=== PATIENT | female | born 1985 | race Caucasian/White ===

== ENCOUNTER 2017-11-13 15:44 | Emergency (ER) | payer MEDICAID ==
[~2017-11-13] VITALS: Ht 167.6 cm; Wt 138.0 kg
[~2017-11-13 15:44] MED LIST: ALBU6.7H INH; BECL8.7A7 INH; FLUT16SP26 BOTHNARES; MECL-111 PO; ONDA4TAB12 PO; SERT50TA PO
[2017-11-13 16:12] VITALS: BP 161/65
[2017-11-13] MEDS ORDERED: HYDR25SU32 RC (17:36)
[2017-11-13] MEDS ORDERED: HYDR30CR79 TOP (17:36)
== END 2017-11-13 17:50 | disposition home or self-care (01) ==
LOC: ER 15:45
DX: K64.4 Residual hemorrhoidal skin tags (principal); I10 Essential (primary) hypertension; K21.9 Gastro-esophageal reflux disease without esophagitis; E11.9 Type 2 diabetes mellitus without complications; F41.9 Anxiety disorder, unspecified; F12.10 Cannabis abuse, uncomplicated; J45.909 Unspecified asthma, uncomplicated; Z88.5 Allergy status to narcotic agent; Z88.8 Allergy status to other drugs, medicaments and biological substances
CPT/HCPCS: 99283

== ENCOUNTER 2018-04-06 12:39 | Emergency (ER) | payer MEDICAID ==
[~2018-04-06] VITALS: Ht 4228.2 cm; Wt 158.0 kg
[~2018-04-06 12:39] MED LIST changes: +HYDR25SU32 RC; +HYDR30CR79 TOP
[2018-04-06 13:19] LABS: BASOPHILS % (AUTO) 0.3 % (0-1); EOSINOPHILS # (AUTO) 0.1 X10'3 (0-0.9); HEMATOCRIT 36.6 % (35.0-45.0); HEMOGLOBIN 12.3 g/dl (12.0-16.0); LYMPHOCYTES # (AUTO) 2.6 X10'3 (1.1-4.8); LYMPHOCYTES % (AUTO) 19.5 % (21-51); MEAN CORPUSCULAR HEMOGLOBIN 27.2 PG (27.0-31.0); MEAN CORPUSCULAR HGB CONC 33.5 % (33.0-36.5); MEAN CORPUSCULAR VOLUME 81.2 FL (78-98); MEAN PLATELET VOLUME 8.4 FL (7.4-10.4); MONOCYTES # (AUTO) 0.7 X10'3 (0-0.9); MONOCYTES % (AUTO) 5.3 % (2-12); NEUTROPHILS # (AUTO) 9.8 X10'3 (1.8-7.7); NEUTROPHILS % (AUTO) 73.9 % (42-75); PLATELET COUNT 399 X10'3 (140-440); RED BLOOD COUNT 4.51 X10'6 (4.20-5.60); RED CELL DISTRIBUTION WIDTH 15.3 % (11.5-14.5); WHITE BLOOD COUNT 13.3 X10'3 (4.5-11.0)
[2018-04-06 13:24] LABS: CLARITY,URINE CLOUDY (Clear); COLOR,URINE YELLOW (Yellow); GLUCOSE, URINE NEGATIVE (Neg); KETONES,URINE NEGATIVE (Neg); LEUKOCYTE ESTERASE ,URINE NEGATIVE (Neg); NITRITES, URINE NEGATIVE (Neg); OCCULT BLOOD,URINE MODERATE (Neg); PROTEIN,URINE NEGATIVE (Neg); UA COLLECTION TYPE CLN CATCH MIDSTREAM; URINE HCG NEGATIVE (NEG); UROBILINOGEN,URINE 0.2 E.U/dL (0.2-1.0)
[2018-04-06 13:29] LABS: MUCUS STRANDS MODERATE /LPF (Neg); SQUAMOUS EPITHELIAL CELL,UR MODERATE /LPF (FEW)
[2018-04-06 13:31] LABS: BACTERIA,URINE FEW /HPF (Neg); WBC,URINE 0-4 /HPF (0-4)
[2018-04-06 13:36] LABS: URINE AMPHETAMINE SCREEN NEGATIVE (Neg); URINE BARBITUATE SCREEN NEGATIVE (Neg); URINE BENZODIAZEPINES SCREEN NEGATIVE (Neg); URINE CANNABINOID SCREEN POSITIVE (Neg); URINE COCAINE SCREEN NEGATIVE (Neg); URINE METHADONE SCREEN NEGATIVE (Neg); URINE OPIATE SCREEN NEGATIVE (Neg); URINE PHENCYCLIDINE SCREEN NEGATIVE (Neg)
[2018-04-06 13:38] LABS: ALANINE AMINOTRANSFERASE 34 U/L (12-78); ALBUMIN 4.1 G/DL (3.4-5.0); ALKALINE PHOSPHATASE 105 IU/L (46-116); ANION GAP 12 (8-16); ASPARTATE AMINO TRANSFERASE 29 U/L (10-37); BILIRUBIN,TOTAL 0.6 MG/DL (0.1-1.0); BLOOD UREA NITROGEN 16 MG/DL (7-18); BUN/CREATININE RATIO 16.3 (6.6-38.0); CALCIUM 9.1 MG/DL (8.5-10.1); CHLORIDE 100 MMOL/L (99-107); CREATININE 0.98 MG/DL (0.40-0.90); GLUCOSE 121 MG/DL (70-104); POTASSIUM 3.5 MMOL/L (3.5-5.1); SODIUM 139 MMOL/L (135-145); TOTAL PROTEIN 8.1 G/DL (6.4-8.2); eGFR 66 ML/MIN
[2018-04-06 13:44] LABS: ETHANOL < 0.010 GM/DL (0.0-0.010)
[2018-04-06] MEDS ORDERED: LAMO25TA94 PO (14:42)
[2018-04-06] MEDS ORDERED: LORA0.5T PO (14:42)
[2018-04-06] MEDS ORDERED: HYDR12.5 PO (14:42)
[2018-04-06] MEDS ORDERED: albuterol 2.5 MG/3 ML nebule NEB PRN (18:30)
[2018-04-06] MEDS: LORazepam 0.5 MG tablet PO PRN (19:12)
[2018-04-06] MEDS: acetaminophen 325mg tablet PO PRN (19:13)
[2018-04-06] MEDS: budesonide 0.5mg/2ml UD nebule IH SCH (20:03)
[2018-04-06] MEDS: traZODone 50mg tablet PO SCH (20:17)
[2018-04-06] MEDS: lamoTRIgine 25mg tablet PO SCH (20:17)
[2018-04-07] MEDS: pantoprazole 40mg Tablet.DR PO SCH (07:30)
[2018-04-07] MEDS: budesonide 0.5mg/2ml UD nebule IH SCH ×2 (08:33→20:18)
[2018-04-07] MEDS: sertraline 50mg tablet PO SCH (08:58)
[2018-04-07] MEDS: HYDROchlorothiazide 12.5mg capsule PO SCH (08:58)
[2018-04-07] MEDS: LORazepam 0.5 MG tablet PO PRN (13:36)
[2018-04-07] MEDS: acetaminophen 325mg tablet PO PRN (17:30)
[2018-04-07] MEDS: lamoTRIgine 25mg tablet PO SCH (20:54)
[2018-04-07] MEDS: traZODone 50mg tablet PO SCH (20:54)
[2018-04-08 06:33] VITALS: BP 149/84
[2018-04-08] MEDS: budesonide 0.5mg/2ml UD nebule IH SCH (07:39)
[2018-04-08] MEDS: sertraline 50mg tablet PO SCH (08:22)
[2018-04-08] MEDS: pantoprazole 40mg Tablet.DR PO SCH (08:23)
[2018-04-08] MEDS: HYDROchlorothiazide 12.5mg capsule PO SCH (09:01)
[2018-04-10] MEDS ORDERED: lamoTRIgine 100mg tablet PO SCH (21:00)
== END 2018-04-08 15:40 ==
LOC: ER 12:40
DX: S50.12XA Contusion of left forearm, initial encounter (principal); S00.81XA Abrasion of other part of head, initial encounter; I10 Essential (primary) hypertension; J45.909 Unspecified asthma, uncomplicated; K21.9 Gastro-esophageal reflux disease without esophagitis; E11.9 Type 2 diabetes mellitus without complications; F12.90 Cannabis use, unspecified, uncomplicated; Z98.890 Other specified postprocedural states; Z88.8 Allergy status to other drugs, medicaments and biological substances; Z79.899 Other long term (current) drug therapy; W25.XXXA Contact with sharp glass, initial encounter; Y93.89 Activity, other specified; Y92.89 Other specified places as the place of occurrence of the external cause; Y99.8 Other external cause status
CPT/HCPCS: 36415; 73110; 80053; 80305; 80320; 81001; 81025; 84443; 85025; 94640; 94760; 99285; J7626

== ENCOUNTER 2021-03-05 15:12 | Emergency (ER) | payer MEDICAID ==
[~2021-03-05] VITALS: Ht 167.6 cm; Wt 154.0 kg
[~2021-03-05 15:12] MED LIST changes: -ALBU6.7H INH; +ALBU6.7H9 INH; +HYDR12.5 PO; -HYDR25SU32 RC; -HYDR30CR79 TOP; +LAMO25TA94 PO; +LORA0.5T PO; -MECL-111 PO; +MECL-159 PO; -ONDA4TAB12 PO
[2021-03-05 16:23] LABS: BASOPHILS # (AUTO) 0.1 X10'3 (0-0.2); BASOPHILS % (AUTO) 0.6 % (0-1); EOSINOPHILS # (AUTO) 0.3 X10'3 (0-0.9); EOSINOPHILS % (AUTO) 2.4 % (0-6); HEMATOCRIT 37.7 % (35.0-45.0); HEMOGLOBIN 12.1 g/dl (12.0-16.0); LYMPHOCYTES # (AUTO) 2.8 X10'3 (1.1-4.8); MEAN CORPUSCULAR HEMOGLOBIN 25.9 PG (27.0-31.0); MEAN CORPUSCULAR HGB CONC 32.2 g/dL (33.0-36.5); MEAN CORPUSCULAR VOLUME 80.3 FL (78-98); MEAN PLATELET VOLUME 8.8 FL (7.4-10.4); MONOCYTES # (AUTO) 0.6 X10'3 (0-0.9); MONOCYTES % (AUTO) 5.2 % (2-12); NEUTROPHILS # (AUTO) 8.2 X10'3 (1.8-7.7); NEUTROPHILS % (AUTO) 68.8 % (42-75); PLATELET COUNT 378 X10'3 (140-440); RED BLOOD COUNT 4.69 X10'6 (4.20-5.60)
[2021-03-05 16:38] LABS: ALANINE AMINOTRANSFERASE 26 U/L (12-78); ALBUMIN 3.9 G/DL (3.4-5.0); ALBUMIN/GLOBULIN RATIO 1.1 (1.1-1.5); ALKALINE PHOSPHATASE 92 IU/L (46-116); ANION GAP 8 (8-16); ASPARTATE AMINO TRANSFERASE 15 U/L (10-37); BILIRUBIN,TOTAL 0.5 MG/DL (0.1-1.0); BLOOD UREA NITROGEN 17 MG/DL (7-18); BUN/CREATININE RATIO 21.3 (6.6-38.0); CALCIUM 8.4 MG/DL (8.5-10.1); CHLORIDE 104 MMOL/L (99-107); GLUCOSE 92 MG/DL (70-104); POTASSIUM 3.4 MMOL/L (3.5-5.1); SODIUM 141 MMOL/L (135-145); TOTAL CARBON DIOXIDE 28.7 MMOL/L (24-32); TOTAL PROTEIN 7.6 G/DL (6.4-8.2); eGFR 82 ML/MIN
[2021-03-05 16:45] LABS: ETHANOL < 0.010 GM/DL (0.0-0.010)
[2021-03-05 16:47] LABS: ACETAMINOPHEN < 2.0 UG/ML (10-30)
[2021-03-05 16:51] LABS: CLARITY,URINE CLEAR (Clear); COLOR,URINE YELLOW (Yellow); GLUCOSE, URINE NEGATIVE (Neg); KETONES,URINE NEGATIVE (Neg); LEUKOCYTE ESTERASE ,URINE NEGATIVE (Neg); NITRITES, URINE NEGATIVE (Neg); OCCULT BLOOD,URINE TRACE-INTACT (Neg); PH,URINE 5.5 (4.8-8.0); PROTEIN,URINE NEGATIVE (Neg); UROBILINOGEN,URINE 0.2 E.U/dL (0.2-1.0)
[2021-03-05 16:53] LABS: URINE HCG NEGATIVE (NEG)
[2021-03-05] MEDS ORDERED: ESCI20TA PO (16:57)
[2021-03-05] MEDS ORDERED: BUSP10TA11 PO (16:57)
[2021-03-05] MEDS ORDERED: TRAN650T2 PO (16:57)
[2021-03-05] MEDS ORDERED: METR-159 PO (16:57)
[2021-03-05] MEDS ORDERED: METF500T PO (16:57)
[2021-03-05] MEDS ORDERED: SIMV-42 PO (16:57)
[2021-03-05] MEDS ORDERED: FLUT16SP11 BOTHNARES (16:57)
[2021-03-05] MEDS ORDERED: LAMO100T PO (16:57)
[2021-03-05] MEDS ORDERED: LAMO200T2 PO (16:57)
[2021-03-05 16:58] LABS: UA COLLECTION TYPE CLN CATCH MIDSTREAM
[2021-03-05 17:00] LABS: SQUAMOUS EPITHELIAL CELL,UR MANY /LPF (FEW); TRANSITIONAL EPI CELLS,URINE FEW /HPF
[2021-03-05] MEDS ORDERED: metFORMIN 500mg tablet PO SCH (17:00)
[2021-03-05 17:02] LABS: WBC,URINE 0-4 /HPF (0-4)
[2021-03-05 17:04] LABS: MUCUS STRANDS MANY /LPF (Neg)
[2021-03-05 17:05] LABS: URINE AMPHETAMINE SCREEN NEGATIVE (Neg); URINE BARBITUATE SCREEN NEGATIVE (Neg); URINE BENZODIAZEPINES SCREEN NEGATIVE (Neg); URINE CANNABINOID SCREEN POSITIVE (Neg); URINE COCAINE SCREEN NEGATIVE (Neg); URINE METHADONE SCREEN NEGATIVE (Neg); URINE OPIATE SCREEN NEGATIVE (Neg); URINE PHENCYCLIDINE SCREEN NEGATIVE (Neg)
[2021-03-05 17:08] LABS: BACTERIA,URINE FEW /HPF (Neg)
[2021-03-05] MEDS ORDERED: tranexamic acid 650mg tablet PO PRN (17:25)
[2021-03-05] MEDS ORDERED: albuterol 2.5 MG/3 ML nebule NEB PRN (17:25)
[2021-03-05] MEDS ORDERED: potassium Cl 20 mEq SR tablet PO ONE (17:30)
--- NOTE | 2021-03-05 17:37 | NUR ---
HOWARD SISTER [phone]
--- NOTE | 2021-03-05 18:32 | NUR ---
Assumed care of patient- report recieved from Andrzej WRIGHT
--- NOTE | 2021-03-05 19:30 | NUR ---
Patient provided with dinner tray- able to feed herself independently.
[2021-03-05 19:45] VITALS: BP 155/88
--- NOTE | 2021-03-05 20:30 | NUR ---
Patient provided with water to take night time medications- able to swallow without difficulty.
[2021-03-05] MEDS: busPIRone 5mg tablet PO SCH (20:42)
[2021-03-05] MEDS: metroNIDAZOLE 500mg tablet PO SCH (20:42)
[2021-03-05] MEDS ORDERED: atorvastatin 10mg tablet PO SCH (21:00)
[2021-03-05] MEDS ORDERED: lamoTRIgine 100mg tablet PO SCH (21:00)
[2021-03-05] MEDS: budesonide 0.5mg/2ml UD nebule IH SCH (21:10)
--- NOTE | 2021-03-05 21:30 | NUR ---
Respiratory therapy at bedside provided patient with breathing treatment. Patient states she usually wears a CPAP for sleep apnea.
--- NOTE | 2021-03-05 22:30 | NUR ---
Patient remains tearful but cooperative. Provided with tissues.
--- NOTE | 2021-03-05 23:30 | NUR ---
Patient appears to be asleep, even and unlabored respirations, turned on her side.
--- NOTE | 2021-03-06 02:54 | NUR ---
[facility] called requesting some information on patient. COVID swab is needed.
[2021-03-06] MEDS ORDERED: acetaminophen 325mg tablet PO ONE (03:25)
--- NOTE | 2021-03-06 03:30 | NUR ---
Patient provided with medicaitons for headache/back pain states "it's probably because I've been crying so much".
[2021-03-06] MEDS: budesonide 0.5mg/2ml UD nebule IH SCH (07:44)
[2021-03-06] MEDS ORDERED: HYDROchlorothiazide 12.5mg capsule PO SCH (08:00)
[2021-03-06] MEDS ORDERED: ESCITALOPRAM OXALATE 5 MG TABLET PO SCH (08:00)
[2021-03-06] MEDS ORDERED: lamoTRIgine 100mg tablet PO SCH (08:00)
[2021-03-06] MEDS ORDERED: fluticasone nasal spray 16GM bottle NS SCH (08:00)
[2021-03-06] MEDS: busPIRone 5mg tablet PO SCH (08:33)
[2021-03-06] MEDS: metroNIDAZOLE 500mg tablet PO SCH (08:33)
[2021-03-06] MEDS ORDERED: LORazepam 1 MG tablet PO ONE (08:50)
[2021-03-06] MEDS ORDERED: LISI20TA28 PO (09:29)
[2021-03-06] MEDS ORDERED: budesonide 0.5mg/2ml UD nebule IH SCH (12:13)
--- NOTE | 2021-03-06 12:47 | NUR ---
Jerman from [employer] for nurse to nurse report. Pt to be presented for possible acceptance.
[2021-03-11] MEDS ORDERED: SIMV-42 PO (13:25)
[2021-03-11] MEDS ORDERED: LISI20TA28 PO (13:25)
[2021-03-11] MEDS ORDERED: FLUT16SP11 BOTHNARES (13:25)
[2021-03-11] MEDS ORDERED: ONDA4TAB12 PO (13:25)
[2021-03-11] MEDS ORDERED: METF500T PO (13:25)
[2021-03-11] MEDS ORDERED: PANT40TA54 PO (13:25)
[2021-03-11] MEDS ORDERED: LAMO100T PO (13:25)
[2021-03-11] MEDS ORDERED: BUSP-28 PO (13:25)
[2021-03-11] MEDS ORDERED: NICO-668 BC (13:25)
[2021-03-11] MEDS ORDERED: ESCI20TA PO (13:25)
[2021-03-11] MEDS ORDERED: HYDROchlorothiazide tablet PO (13:25)
[2021-03-11] MEDS ORDERED: TRAN650T2 PO (13:25)
[2021-03-11] MEDS ORDERED: LAMO200T2 PO (13:25)
== END 2021-03-06 15:18 ==
LOC: ER 15:12
DX: R45.851 Suicidal ideations (principal); Z20.822 Contact with and (suspected) exposure to COVID-19; I10 Essential (primary) hypertension; J45.909 Unspecified asthma, uncomplicated; K21.9 Gastro-esophageal reflux disease without esophagitis; E11.9 Type 2 diabetes mellitus without complications; G47.39 Other sleep apnea; F17.200 Nicotine dependence, unspecified, uncomplicated; F12.90 Cannabis use, unspecified, uncomplicated; Z98.891 History of uterine scar from previous surgery; Z98.890 Other specified postprocedural states; Z88.8 Allergy status to other drugs, medicaments and biological substances; Z91.018 Allergy to other foods; Z79.899 Other long term (current) drug therapy
CPT/HCPCS: 36415; 80053; 80305; 80320; 80329; 81001; 81025; 84443; 85025; 87635; 94640; 99285; C9803; 94760; J3490; J7626

== ENCOUNTER 2021-04-01 12:59 | Emergency (ER) | payer MEDICAID ==
[~2021-04-01] VITALS: Ht 167.6 cm; Wt 150.0 kg
[~2021-04-01 12:59] MED LIST changes: +BUSP-28 PO; +ESCI20TA PO; +FLUT16SP11 BOTHNARES; -FLUT16SP26 BOTHNARES; -HYDR12.5 PO; +HYDROchlorothiazide tablet PO; +LAMO100T PO; +LAMO200T2 PO; -LAMO25TA94 PO; +LISI20TA28 PO; -LORA0.5T PO; -MECL-159 PO; +METF500T PO; +NICO-668 BC; +ONDA4TAB12 PO; +PANT40TA54 PO; -SERT50TA PO; +SIMV-42 PO; +TRAN650T2 PO
[2021-04-01 15:14] LABS: URINE HCG NEGATIVE (NEG)
[2021-04-01 15:16] LABS: CLARITY,URINE CLOUDY (Clear); COLOR,URINE YELLOW (Yellow); GLUCOSE, URINE NEGATIVE (Neg); KETONES,URINE NEGATIVE (Neg); LEUKOCYTE ESTERASE ,URINE NEGATIVE (Neg); NITRITES, URINE NEGATIVE (Neg); OCCULT BLOOD,URINE NEGATIVE (Neg); PH,URINE 5.5 (4.8-8.0); PROTEIN,URINE NEGATIVE (Neg); UROBILINOGEN,URINE 0.2 E.U/dL (0.2-1.0)
[2021-04-01 15:22] LABS: UA COLLECTION TYPE CLN CATCH MIDSTREAM
[2021-04-01 15:23] LABS: SQUAMOUS EPITHELIAL CELL,UR FEW /LPF (FEW)
[2021-04-01 15:24] LABS: BACTERIA,URINE 1+ /HPF (Neg); RBC,URINE 0-2 /HPF (0-2); WBC,URINE 0-4 /HPF (0-4)
[2021-04-01 15:40] LABS: BASOPHILS # (AUTO) 0.1 X10'3 (0-0.2); BASOPHILS % (AUTO) 0.7 % (0-1); EOSINOPHILS # (AUTO) 0.3 X10'3 (0-0.9); EOSINOPHILS % (AUTO) 2.2 % (0-6); HEMATOCRIT 35.5 % (35.0-45.0); HEMOGLOBIN 11.8 g/dl (12.0-16.0); LYMPHOCYTES # (AUTO) 2.9 X10'3 (1.1-4.8); LYMPHOCYTES % (AUTO) 22.3 % (21-51); MEAN CORPUSCULAR HEMOGLOBIN 26.6 PG (27.0-31.0); MEAN CORPUSCULAR HGB CONC 33.1 g/dL (33.0-36.5); MEAN CORPUSCULAR VOLUME 80.3 FL (78-98); MEAN PLATELET VOLUME 8.2 FL (7.4-10.4); MONOCYTES # (AUTO) 0.7 X10'3 (0-0.9); MONOCYTES % (AUTO) 5.6 % (2-12); NEUTROPHILS % (AUTO) 69.2 % (42-75); PLATELET COUNT 409 X10'3 (140-440); RED BLOOD COUNT 4.43 X10'6 (4.20-5.60)
[2021-04-01 15:59] LABS: ALANINE AMINOTRANSFERASE 29 U/L (12-78); ALBUMIN 3.9 G/DL (3.4-5.0); ALKALINE PHOSPHATASE 101 IU/L (46-116); ANION GAP 6 (8-16); ASPARTATE AMINO TRANSFERASE 15 U/L (10-37); BILIRUBIN,TOTAL 0.3 MG/DL (0.1-1.0); BLOOD UREA NITROGEN 17 MG/DL (7-18); BUN/CREATININE RATIO 17.9 (6.6-38.0); CALCIUM 9.1 MG/DL (8.5-10.1); CHLORIDE 103 MMOL/L (99-107); CREATININE 0.95 MG/DL (0.40-0.90); GLUCOSE 127 MG/DL (70-104); LIPASE 89 U/L (73-393); POTASSIUM 3.8 MMOL/L (3.5-5.1); SODIUM 140 MMOL/L (135-145); TOTAL CARBON DIOXIDE 30.6 MMOL/L (24-32); TOTAL PROTEIN 7.8 G/DL (6.4-8.2); eGFR 67 ML/MIN
[2021-04-01] MEDS ORDERED: ketorolac trometh. 30mg/ml inj. IM ONE (17:45)
[2021-04-01] MEDS ORDERED: NAPR-56 PO (17:48)
[2021-04-01 18:08] VITALS: BP 147/59
== END 2021-04-01 18:09 | disposition home or self-care (01) ==
LOC: ER 13:01
DX: R10.84 Generalized abdominal pain (principal); M25.512 Pain in left shoulder; R11.0 Nausea; R05 Cough; I10 Essential (primary) hypertension; J45.909 Unspecified asthma, uncomplicated; K21.9 Gastro-esophageal reflux disease without esophagitis; E11.9 Type 2 diabetes mellitus without complications; F41.9 Anxiety disorder, unspecified; F12.90 Cannabis use, unspecified, uncomplicated; Z98.890 Other specified postprocedural states; Z72.89 Other problems related to lifestyle; Z88.8 Allergy status to other drugs, medicaments and biological substances; Z79.899 Other long term (current) drug therapy
CPT/HCPCS: 36415; 80053; 81001; 81025; 83690; 85025; 96372; 99283; J1885

== ENCOUNTER 2023-01-07 20:17 | Emergency (ER) | payer MEDICAID ==
[~2023-01-07] VITALS: Ht 167.6 cm; Wt 151.4 kg
[~2023-01-07 20:17] MED LIST changes: +ALBU6.7H14 INH; -ALBU6.7H9 INH
[2023-01-07 20:33] VITALS: BP 163/79
[2023-01-07] MEDS ORDERED: LORazepam 1 MG tablet PO ONE (21:30)
[2023-01-07] MEDS ORDERED: traZODone 50mg tablet PO STA (21:51)
[2023-01-07] MEDS: traZODone 50mg tablet PO SCH ×3 (22:19→22:21)
== END 2023-01-07 22:23 | disposition home or self-care (01) ==
LOC: ER 20:18
DX: F41.9 Anxiety disorder, unspecified (principal); E78.00 Pure hypercholesterolemia, unspecified; I10 Essential (primary) hypertension; J45.909 Unspecified asthma, uncomplicated; K21.9 Gastro-esophageal reflux disease without esophagitis; E11.9 Type 2 diabetes mellitus without complications; Z98.890 Other specified postprocedural states; G47.30 Sleep apnea, unspecified; F12.90 Cannabis use, unspecified, uncomplicated; Z72.89 Other problems related to lifestyle; Z79.899 Other long term (current) drug therapy; Z88.8 Allergy status to other drugs, medicaments and biological substances; Z88.5 Allergy status to narcotic agent
CPT/HCPCS: 99284

== ENCOUNTER 2023-12-20 08:12 | Emergency (ER) | payer BC, MEDICAID ==
[~2023-12-20] VITALS: Ht 167.6 cm; Wt 111.0 kg
[2023-12-20 08:31] VITALS: BP 167/111; PULSE 84; RESP 18; TEMP 98; O2SAT 98
== END 2023-12-20 09:51 | disposition home or self-care (01) ==
LOC: ER 08:12
DX: S93.402A Sprain of unspecified ligament of left ankle, initial encounter (principal); E78.00 Pure hypercholesterolemia, unspecified; I10 Essential (primary) hypertension; J45.909 Unspecified asthma, uncomplicated; K21.9 Gastro-esophageal reflux disease without esophagitis; E11.9 Type 2 diabetes mellitus without complications; F12.90 Cannabis use, unspecified, uncomplicated; Z88.8 Allergy status to other drugs, medicaments and biological substances; Z91.018 Allergy to other foods; Z79.899 Other long term (current) drug therapy; Z79.1 Long term (current) use of non-steroidal anti-inflammatories (NSAID); Z98.890 Other specified postprocedural states; X50.1XXA Overexertion from prolonged static or awkward postures, initial encounter; Y93.89 Activity, other specified; Y92.89 Other specified places as the place of occurrence of the external cause; Y99.8 Other external cause status
CPT/HCPCS: 73610; 99283; A6449

== ENCOUNTER 2024-05-16 04:22 | Emergency (ER) | payer BC, MEDICAID ==
[~2024-05-16] VITALS: Ht 167.6 cm; Wt 118.2 kg
[~2024-05-16 04:22] MED LIST changes: +ONDA-243 PO; -ONDA4TAB12 PO
[2024-05-16 04:33] VITALS: BP 138/99; PULSE 100; RESP 20; O2SAT 97
[2024-05-16 04:59] LABS: BILIRUBIN,URINE NEGATIVE (Neg); CLARITY,URINE CLEAR (Clear); COLOR,URINE STRAW (Yellow); GLUCOSE, URINE 100 mg/dl (Neg); KETONES,URINE NEGATIVE (Neg); LEUKOCYTE ESTERASE ,URINE NEGATIVE (Neg); NITRITES, URINE NEGATIVE (Neg); OCCULT BLOOD,URINE TRACE-INTACT (Neg); PROTEIN,URINE NEGATIVE (Neg); UROBILINOGEN,URINE 0.2 E.U/dL (0.2-1.0)
[2024-05-16 05:04] LABS: URINE AMPHETAMINE SCREEN NEGATIVE (Neg); URINE BARBITUATE SCREEN NEGATIVE (Neg); URINE BENZODIAZEPINES SCREEN NEGATIVE (Neg); URINE CANNABINOID SCREEN POSITIVE (Neg); URINE COCAINE SCREEN NEGATIVE (Neg); URINE METHADONE SCREEN NEGATIVE (Neg); URINE OPIATE SCREEN NEGATIVE (Neg); URINE PHENCYCLIDINE SCREEN NEGATIVE (Neg)
[2024-05-16 05:05] LABS: UA COLLECTION TYPE CLN CATCH MIDSTREAM
[2024-05-16 05:07] LABS: BACTERIA,URINE FEW /HPF (Neg); RBC,URINE 0-2 /HPF (0-2); SQUAMOUS EPITHELIAL CELL,UR NONE SEEN /LPF (FEW); WBC,URINE 0-4 /HPF (0-4)
[2024-05-16 05:31] LABS: BASOPHILS % (AUTO) 0.4 % (0-1); EOSINOPHILS % (AUTO) 0.4 % (0-6); HEMATOCRIT 39.9 % (35.0-45.0); HEMOGLOBIN 12.9 g/dl (12.0-16.0); LYMPHOCYTES # (AUTO) 2.2 X10'3 (1.1-4.8); LYMPHOCYTES % (AUTO) 24.6 % (21-51); MEAN CORPUSCULAR HGB CONC 32.4 g/dL (33.0-36.5); MEAN CORPUSCULAR VOLUME 86.2 FL (78-98); MEAN PLATELET VOLUME 8.2 FL (7.4-10.4); MONOCYTES # (AUTO) 0.3 X10'3 (0-0.9); NEUTROPHILS # (AUTO) 6.2 X10'3 (1.8-7.7); NEUTROPHILS % (AUTO) 70.6 % (42-75); PLATELET COUNT 433 X10'3 (140-440); RED BLOOD COUNT 4.62 X10'6 (4.20-5.60); RED CELL DISTRIBUTION WIDTH 14.6 % (11.5-14.5); WHITE BLOOD COUNT 8.8 X10'3 (4.5-11.0)
[2024-05-16 05:37] LABS: ALANINE AMINOTRANSFERASE 36 U/L (12-78); ALBUMIN 3.8 G/DL (3.4-5.0); ALKALINE PHOSPHATASE 88 IU/L (46-116); ANION GAP 13 (8-16); ASPARTATE AMINO TRANSFERASE 20 U/L (10-37); BILIRUBIN,TOTAL 0.2 MG/DL (0.1-1.0); BLOOD UREA NITROGEN 13 MG/DL (7-18); BUN/CREATININE RATIO 19.7 (10.0-20.0); CALCIUM 8.9 MG/DL (8.5-10.1); CHLORIDE 109 MMOL/L (99-107); CREATININE 0.66 MG/DL (0.40-0.90); ETHANOL 168 MG/DL (<10); GLUCOSE 119 MG/DL (70-104); POTASSIUM 3.6 MMOL/L (3.5-5.1); SODIUM 146 MMOL/L (135-145); TOTAL CARBON DIOXIDE 24.1 MMOL/L (24-32); TOTAL PROTEIN 7.8 G/DL (6.4-8.2); eCRCL 109 ML/MIN; eGFR > 90 ML/MIN
[2024-05-16] MEDS: ibuprofen tablet 400 MG TABLET PO ONE (06:42)
[2024-05-16 07:26] LABS: URINE HCG NEGATIVE (NEG)
[2024-05-16 10:37] VITALS: TEMP 97.7
== END 2024-05-16 11:04 | disposition home or self-care (01) ==
LOC: ER 04:23
DX: R45.851 Suicidal ideations (principal); Z20.822 Contact with and (suspected) exposure to COVID-19; F12.90 Cannabis use, unspecified, uncomplicated; E78.00 Pure hypercholesterolemia, unspecified; I10 Essential (primary) hypertension; J45.909 Unspecified asthma, uncomplicated; K21.9 Gastro-esophageal reflux disease without esophagitis; E11.9 Type 2 diabetes mellitus without complications; F41.9 Anxiety disorder, unspecified; G47.39 Other sleep apnea; Z72.89 Other problems related to lifestyle; Z98.890 Other specified postprocedural states; Z79.899 Other long term (current) drug therapy; Z79.51 Long term (current) use of inhaled steroids; Z88.8 Allergy status to other drugs, medicaments and biological substances; Z91.018 Allergy to other foods
CPT/HCPCS: 36415; 80053; 80305; 80320; 81001; 81025; 85025; 87811; 99285